=== PATIENT | female | born 1965 | race Caucasian/White ===

== ENCOUNTER 2021-08-10 14:37 | Emergency (ER) | payer MEDICAID ==
[~2021-08-10] VITALS: Ht 167.6 cm; Wt 60.0 kg
[~2021-08-10 14:37] MED LIST: ALD25T PO; DICY10CA88 PO; ESCI20TA29 PO; FURO-150 PO
[2021-08-10 14:45] VITALS: BP 119/62
[2021-08-10] MEDS ORDERED: SULF1TAB45 PO (14:47)
[2021-08-10] MEDS ORDERED: CEPH250T PO (14:47)
== END 2021-08-10 15:02 | disposition home or self-care (01) ==
LOC: ER 14:37
DX: S91.301A Unspecified open wound, right foot, initial encounter (principal); Z86.19 Personal history of other infectious and parasitic diseases; Z98.890 Other specified postprocedural states; Z90.89 Acquired absence of other organs; Z72.89 Other problems related to lifestyle; Z88.1 Allergy status to other antibiotic agents; Z79.2 Long term (current) use of antibiotics; Z79.899 Other long term (current) drug therapy; X58.XXXA Exposure to other specified factors, initial encounter; Y93.89 Activity, other specified; Y92.89 Other specified places as the place of occurrence of the external cause; Y99.8 Other external cause status
CPT/HCPCS: 99283

== ENCOUNTER 2022-06-13 07:10 | Emergency (ER) | payer MEDICAID ==
[~2022-06-13] VITALS: Ht 167.6 cm; Wt 60.0 kg
[2022-06-13 10:54] VITALS: BP 140/84
== END 2022-06-13 10:58 | disposition home or self-care (01) ==
LOC: ER 07:10
DX: S30.1XXA Contusion of abdominal wall, initial encounter (principal); R10.84 Generalized abdominal pain; F17.200 Nicotine dependence, unspecified, uncomplicated; Z86.19 Personal history of other infectious and parasitic diseases; Z98.890 Other specified postprocedural states; Z72.89 Other problems related to lifestyle; Z88.1 Allergy status to other antibiotic agents; Z79.899 Other long term (current) drug therapy; X58.XXXA Exposure to other specified factors, initial encounter; Y93.89 Activity, other specified; Y92.89 Other specified places as the place of occurrence of the external cause; Y99.8 Other external cause status
CPT/HCPCS: 74176; 99285